=== PATIENT | female | born 2000 | race African-American/Black ===

== ENCOUNTER 2022-01-05 21:05 | Emergency (ER) | payer MEDICAID, SELFPAY ==
[2022-01-05 21:08] VITALS: BP 145/89; PULSE 89; RESP 18; TEMP 36.3; O2SAT 100
--- NOTE | 2022-01-05 22:16 | ED.GENADULT ---
HPI - General Adult General Chief complaint: Unspecified <JACLYN Stokes Last Filed: 01/05/22 23:44> Stated complaint: sore throat <JACLYN Stokes Last Filed: 01/05/22 23:44> Time Seen by Provider: 01/05/22 22:11 <JACLYN Stokes Last Filed: 01/05/22 23:44> History of Present Illness HPI narrative: Patient is a 21-year-old female who presents for evaluation of sore throat x2 days. Patient states the pain came on gradually. Reports pain with swallowing, but she is tolerating her secretions. She has not tried anything for the pain. Denies neck swelling, fevers, chills, difficulty moving her neck, sinus congestion, cough. She has beem vaccinated against COVID and flu. <JACLYN Stokes Last Filed: 01/05/22 23:44> Related Data Allergies/adverse reactions: Allergies Allergy/AdvReac Type Severity Reaction Status Date / Time No Known Allergies Allergy Verified 01/05/22 22:19 <JACLYN Stokes Last Filed: 01/05/22 23:44> Review of Systems Review of Systems: Gen: Denies fevers or chills Eyes: Denies eye pain or visual change ENT: Reports sore throat. Denies congestion Respiratory: Denies shortness of breath or cough CV: Denies chest pain or palpitations GI: Denies abdominal pain nausea, emesis or diarrhea denies burning, urgency, frequency or hematuria Musculoskeletal: Denies back pain or muscle pain Neuro: Denies numbness, tingling, weakness or focal weakness Skin: Denies rash Except as documented, all other systems reviewed and negative <JACLYN Stokes Last Filed: 01/05/22 23:44> All systems reviewed & are unremarkable except as noted in HPI and below <JACLYN Stokes Last Filed: 01/05/22 23:44> Exam Narrative: APPEARANCE: Well appearing, no pain in distress, well-nourished. Head normocephalic and atraumatic. EYES: PERRLA/EOMI, conjunctivae clear NOSE: No nasal drainage EARS: External ear normal in appearance THROAT: Tonsils are 2+ bilaterally. No EXCELLENCE CONSULTANT visualized. No uvular deviation. NECK: Supple. Full range of motion in neck without pain. No adenopathy, no masses. RESPIRATORY: Airway patent, respirations nonlabored. Clear to auscultation bilaterally, no rales, rhonchi, wheezing. CARDIOVASCULAR: Regular rate and rhythm without murmurs, rubs, or gallops. ABDOMINAL: Normoactive bowel sounds. Soft, nontender, nondistended. No rebound tenderness or guarding. MUSCULOSKELETAL: Extremities are warm and well-perfused. Moves all extremities well. No edema. NEURO: Normal speech. No focal neurologic deficits. SKIN:: Skin is warm and dry. No rashes. PSYCHIATRIC: Normal affect/mood.. <JACLYN Stokes Last Filed: 01/05/22 23:44> Course Vital Signs Vital signs: Vital Signs Temperature 97.3 F L 01/05/22 21:08 Pulse Rate 89 01/05/22 21:08 Respiratory Rate 18 01/05/22 21:08 Blood Pressure 145/89 H 01/05/22 21:08 Pulse Oximetry 100 01/05/22 21:08 Temperature 97.3 F L 01/05/22 21:08 Pulse Rate 89 01/05/22 21:08 Respiratory Rate 18 01/05/22 21:08 Blood Pressure 145/89 H 01/05/22 21:08 Pulse Oximetry 100 01/05/22 21:08 <JACLYN Stokes Last Filed: 01/05/22 23:44> Medical Decision Making MDM Narrative Medical decision making narrative: 21-year-old female here with sore throat for 2 days. Vital signs stable, tonsillar swelling noted on exam, strep test negative. Very low concern for EXCELLENCE CONSULTANT/RPA, as patient has full range of motion of her neck and is tolerating her secretions. Will give shot of steroids for swelling and pain, discussed return precautions with patient. <JACLYN Stokes Last Filed: 01/05/22 23:44> Vital Signs Vital Signs: Vital Signs Temperature 97.3 F L 01/05/22 21:08 Pulse Rate 89 01/05/22 21:08 Respiratory Rate 18 01/05/22 21:08 Blood Pressure 145/89 H 01/05/22 21:08 Pulse Oxim
== END 2022-01-05 22:54 | disposition home or self-care (01) ==
PROVIDERS: Emergency Provider Emergency Medicine
DX: J02.9 Acute pharyngitis, unspecified (principal)
CPT/HCPCS: 87081; 87880; 96372; 99283; J1100

== ENCOUNTER 2022-08-31 13:47 | Emergency (ER) | payer OTHER, SELFPAY ==
[2022-08-31 13:55] VITALS: BP 115/99; PULSE 106; RESP 18; TEMP 36.4; O2SAT 100
--- NOTE | 2022-08-31 14:08 | ED.FEMALEGU ---
HPI - Female Genitourinary General Chief complaint: Urogenital-Female Stated complaint: ovarian cyst Time Seen by Provider: 08/31/22 13:52 Source: patient and RN notes reviewed Mode of arrival: other Limitations: no limitations History of Present Illness HPI Narrative: 22 years old -[place] female presents with a cystlike feeling at the left side of her vagina for the last 3 to 4 weeks. No discharge. She denies any fever, chills, nausea, vomiting. Related Data Allergies Allergy/AdvReac Type Severity Reaction Status Date / Time No Known Allergies Allergy Verified 01/05/22 22:19 Review of Systems Review of Systems: All systems reviewed & are unremarkable except as noted in HPI and below Exam Narrative: General appearance: Well-developed, well-nourished Skin: Normal color Chest and respiratory: Airway patent, no respiratory distress, no accessory muscle use Heart: Regular rate/rhythm Abdomen: Soft, nontender, no organomegaly, quiet bowel sounds Vascular: Normal peripheral pulses, normal capillary refill. Musculoskeletal: Normal range of motion, nontender back Neurologic: Alert and oriented ?3, NET FRONT END DEVELOPER is normal as tested, no gross motor deficit Course Vital Signs Vital signs: Vital Signs Temperature 36.4 C 08/31/22 13:55 Pulse Rate 106 H 08/31/22 13:55 Respiratory Rate 18 08/31/22 13:55 Blood Pressure 115/99 H 08/31/22 13:55 Pulse Oximetry 100 08/31/22 13:55 Oxygen Delivery Room Air 08/31/22 13:55 Temperature 36.4 C 08/31/22 13:55 Pulse Rate 106 H 08/31/22 13:55 Respiratory Rate 18 08/31/22 13:55 Blood Pressure 115/99 H 08/31/22 13:55 Pulse Oximetry 100 08/31/22 13:55 Oxygen Delivery Room Air 08/31/22 13:55 Procedures Abscess I/D bartholin's gland: Date of Incision: 08/31/22 Time of Incision: 16:33 Side (if applicable): left Sedation/analgesia: none Local Anesthetic: none Technique: incised with #11 blade Amount of fluid expressed (mL): 30 Irrigation: No Packing used?: Word catheter I&D Results: Pus Complications: pain Abcess I&D Additional Comments: WOrd cath was inflated with 5 cc normal saline MDM - Female Genitourinary MDM Narrative Medical decision making narrative: Patient is 22 years old -[place] female presents with a cyst like feeling at the left vaginal area Physical examination showed signs consistent with Bartholin cyst at the inner side of the labia minora. Incision using #11 scalpel done, 30 mL purulent discharge, offensive odor, Word catheter placed, inflated with 5 mL normal saline, patient tolerated the procedure well. Discharged on doxycycline and to follow-up with COATER ASSOCIATE within 5 to 7 days. Patient tolerated the procedure well. Critical Care Time Critical Care Time Critical Care Time: No Discharge Plan Discharge Clinical Impression: Bartholin's gland abscess Patient Disposition: Home, Self-Care Condition: Improved Instructions: Antibiotic Form, Bartholin Cyst (ED) Additional Instructions: Return if symptoms are worsening , call DR BENSON for appointment, take Tylenol as as needed for aches and pain, continue home medications. Prescriptions: New doxycycline hyclate 100 mg tablet 100 mg PO DAILY Qty: 20 0RF Follow-up/Referrals: Kostas,Alanis Gonzalez MD [Primary Care Provider] - Duke Benson MD [Physician] - 09/05/22 Stand Alone Forms: Work/School Release IP
== END 2022-08-31 16:49 | disposition home or self-care (01) ==
PROVIDERS: Emergency Provider Emergency Medicine; PCP Obstetrics & Gynecology
DX: N75.0 Cyst of Bartholin's gland (principal)
CPT/HCPCS: 56420; 99283

== ENCOUNTER 2022-10-26 22:38 | Emergency (ER) | payer OTHER, SELFPAY ==
[2022-10-26 22:51] VITALS: BP 164/58; PULSE 101; RESP 18; TEMP 36.4; O2SAT 100
--- NOTE | 2022-10-27 00:24 | PC.NURSE ---
A wound assessment was documented on this pt. It was on the incorrect pt. Disregard wound assessment
--- NOTE | 2022-10-27 00:26 | PC.NURSE ---
Pt reports Bartholin cyst
[2022-10-27] MEDS: HYDROcodone/acetaminophen (*CRX) 7.5-325 MG TABLET 1 TAB PO (01:47)
--- NOTE | 2022-10-27 01:54 | ED.SKABFB ---
HPI - Skin/Abscess/Foreign Bdy General Chief complaint: Skin/Abscess/Foreign Body <JACYLN Stokes Last Filed: 10/27/22 04:31> Stated complaint: cyst needs drain <JACLYN Stokes Last Filed: 10/27/22 04:31> Time Seen by Provider: 10/27/22 00:16 <JACLYN Stokes Last Filed: 10/27/22 04:31> History of Present Illness HPI narrative: Patient is a 22-year-old female here for evaluation of left-sided labial swelling and pain over the past several days. Patient has a history of Bartholin gland abscess that she had drained at the end of August. States that she had a Word catheter placed but this fell out the next day. The pain and swelling reaccumulated over the past several days. She has not seen her APPRAISAL COORDINATOR for follow-up. Denies nausea, vomiting, abdominal pain. <JACLYN Stokes Last Filed: 10/27/22 04:31> Related Data Allergies/Adverse reactions: Allergies Allergy/AdvReac Type Severity Reaction Status Date / Time No Known Allergies Allergy Verified 01/05/22 22:19 <JACLYN Stokes Last Filed: 10/27/22 04:31> Review of Systems Review of Systems: Gen.: Denies fevers or chills Eyes: Denies eye pain or visual change ENT: Denies congestion Respiratory: Denies shortness of breath or cough CV: Denies chest pain or palpitations GI: Denies abdominal pain nausea, emesis or diarrhea denies burning, urgency, frequency or hematuria Musculoskeletal: Denies back pain or muscle pain Neuro: Denies numbness, tingling, weakness or focal weakness Skin: Reports swelling and pain to the left labia Except as documented, all other systems reviewed and negative <JACLYN Stokes Last Filed: 10/27/22 04:31> Exam Narrative: Gen: Uncomfortable in appearance. Eyes: EOMI, no icterus Pulm: Respirations even and unlabored, symmetric thorax expansion, no audible stridor or visible cyanosis CV: Regular rate per telemetry GI: No distension, no voluntary/involuntary guarding : Patient has a 2 x 3 cm area of fluctuance and induration to the 4 o'clock position in her labia minora with no active drainage. This area is tender to palpation. Neuro: AOx4, moves all extremities without apparent difficulty or weakness, follows commands Skin: No jaundice, no visible bruising, rashes, lesions or wounds on exposed skin Psych: Normal mood/affect, insight/judgement good, adequate fund of knowledge, recent/remote memory intact <Alanis Mccarty PA-C - Last Filed: 10/27/22 04:31> Course SUGAR CANE PLANTER MACHINE OPERATOR/PA Physician Supervision This is a was performed by both a physician and an APC. Deleon components of procedures were performed under my supervision I performed all aspects of the MDM as documented w/ the following additions: 22-year-old female presenting with infected Bartholin gland cyst. I&D performed with word catheter placed. Patient placed on antibiotics and given follow-up. All questions answered. Patient in agreement w/ disposition. <Yinka Ruby MD - Last Filed: 10/28/22 03:40> Vital Signs Vital signs: Vital Signs Temperature 97.5 F L 10/26/22 22:51 Pulse Rate 101 H 10/26/22 22:51 Respiratory Rate 18 10/26/22 22:51 Blood Pressure 164/58 H 10/26/22 22:51 Pulse Oximetry 100 10/26/22 22:51 Oxygen Delivery Room Air 10/26/22 22:51 Temperature 97.5 F L 10/26/22 22:51 Pulse Rate 95 10/27/22 03:00 Respiratory Rate 18 10/27/22 03:00 Blood Pressure 152/84 H 10/27/22 03:00 Pulse Oximetry 100 10/27/22 03:00 Oxygen Delivery Room Air 10/26/22 22:51 <Alanis Mccarty PA-C - Last Filed: 10/27/22 04:31> Vital Signs Temperature 97.5 F L 10/26/22 22:51 Pulse Rate 101 H 10/26/22 22:51 Respiratory Rate 18 10/26/22 22:51 Blood Pressure 164/58 H 10/26/22 22:51 Pulse Oximetry 100 10/26/22 22:51 Oxygen Delivery Room Air 10/26/22 22:51 Temperature 97.5 F L 10/26/22 22:51 Pulse Rate
[2022-10-27 02:16] VITALS: BP 158/76; PULSE 97; RESP 18; O2SAT 98
[2022-10-27 03:00] VITALS: BP 152/84; PULSE 95; RESP 18; O2SAT 100
== END 2022-10-27 03:04 | disposition home or self-care (01) ==
PROVIDERS: Emergency Provider Physician Assistant; PCP Obstetrics & Gynecology
DX: N75.1 Abscess of Bartholin's gland (principal)
CPT/HCPCS: 56420; 99283; A9270

== ENCOUNTER 2025-03-25 10:41 | Emergency (ER) | payer OTHER, SELFPAY ==
--- NOTE | ~2025-03-25 | XR_ITS ---
LUMBAR SPINE INDICATION: Low back pain TECHNIQUE: 3 views lumbar spine views lumbar spine COMPARISON: No prior studies for comparison. FINDINGS: No fracture, subluxation or dislocation. No evidence for spondylolysis or spondylolisthesi s. Vertebral bodies and disk spaces are preserved. IMPRESSION: 1: No acute abnormality of the lumbar spine identified. Reviewed, dictated and finalized at location A.
[2025-03-25 10:52] VITALS: BP 167/107; PULSE 79; RESP 16; TEMP 36.9; O2SAT 100
[2025-03-25 10:53] VITALS: BP 175/99
--- NOTE | 2025-03-25 12:02 | ED.GENADULT ---
HPI - General Adult General Chief complaint: Back Pain/Injury Stated complaint: back pain Source: patient Mode of arrival: ambulatory Limitations: no limitations History of Present Illness HPI narrative: Patient presents for evaluation of low back pain since yesterday. She indicates she was cleaning her room prior to the time of symptom onset, although she does not remember specific movement that induced her pain. Pain is constant, sharp, 7/10 in severity. Radiates into her left buttock and down the posterior aspect of the left thigh. She has tried taking Tylenol for symptoms. She denies any saddle anesthesia, bladder /bowel incontinence. Related Data Allergies Allergy/AdvReac Type Severity Reaction Status Date / Time No Known Allergies Allergy Verified 03/25/25 10:44 Review of Systems Review of Systems: CONSTITUTIONAL: Denies fever, chills, or sweats. EYES: Denies visual changes, redness, or discharge. ENT: Denies rhinorrhea, congestion, sore throat, or otalgia. CARDIOVASCULAR: Denies chest pain, palpitations, or edema. RESPIRATORY: Denies cough or dyspnea. GASTROINTESTINAL: Denies abdominal pain, nausea, vomiting, or diarrhea. GENITOURINARY: Denies dysuria or hematuria. SKIN: Denies rash or itching. MUSCULOSKELETAL: reports low back pain with radiation into the left buttock and on the posterior aspect the left thigh NEUROLOGIC: Denies headache, numbness, dizziness, or weakness. PSYCHIATRIC: Denies anxiety or depression. PMFSH Past Medical History Medical History PCOS (polycystic ovarian syndrome) Surgical History Surgical History History of removal of ovarian cyst Family History Family History (Updated 03/25/25 @ 12:07 by DOV Wills, ) Mother Family history non-contributory Social History Social History Smoking status: Never smoker Substance use: never Gender identity (if verbalized by the patient): Female Spiritual care concerns: No Exam Narrative: GENERAL: Well-appearing, well-nourished, and in no acute distress. HEAD: Normocephalic, atraumatic. EYES: PERRLA and EOMI. ENT: Nares clear, no rhinorrhea or epistaxis. Mucous membranes moist. Oropharynx without tonsillar hypertrophy exudate or other lesions. Bilateral TMs pearly andrew nonbulging NECK: Supple. No adenopathy or masses. No carotid bruits or JVD CHEST: Clear to auscultation. No respiratory distress. No wheezes rales or rhonchi HEART: Regular rate and rhythm. No murmur heard. Normal peripheral pulses. ABDOMEN: Soft, nontender, nondistended, normal active bowel sounds. EXTREMITIES: Normal range of motion. No edema. SKIN: Warm, dry, no rash. NEURO: No focal deficits. Alert and oriented x3. PSYCH: Normal mood and affect. Course Course Emergency Course: This is a 24 year old female who presented for evaluation of low back pain. x-ray negative. Exam is consistent with strain. Will DC with ibuprofen and Flexeril. Advise she follow up outpatient for further evaluation and treatment. She should have her blood pressure recheck by primary care provider. She should go to the emergency department for worsening symptoms. Patient in agreement with plan of care. Level of Care: Express Care Visit Vital Signs Vital signs: Vital Signs Temperature 36.9 C 03/25/25 10:52 Pulse Rate 79 03/25/25 10:52 Respiratory Rate 16 03/25/25 10:52 Blood Pressure 167/107 H 03/25/25 10:52 Pulse Oximetry 100 03/25/25 10:52 Oxygen Delivery Room Air 03/25/25 10:52 Temperature 36.9 C 03/25/25 10:52 Pulse Rate 79 03/25/25 10:52 Respiratory Rate 16 03/25/25 10:52 Blood Pressure 175/99 H 03/25/25 10:53 Pulse Oximetry 100 03/25/25 10:52 Oxygen Delivery Room Air 03/25/25 10:52 Medical Decision Making Vital Signs Vital Signs: Vital Signs Temperature 36.9 C 03/25/25 10:52 Pulse Rate 79 03/25/25 10:52 Respiratory Rate 16 03/25/25 10:52 Blood Pressure 167/107 H 03/25/25 10:52 Pulse Oximetry 100 03/25/25 10:52 Oxygen Delivery Room Air 03/25/25 10:52 Temperature 36.9 C 03/25/25 10:52 Pulse Rate 79 03/25/25 10:52 Respiratory Rate 16 03/25/25 10:52 Blood Pressure 175/99 H 03/25/25 10:53 Pulse Oximetry 100 03/25/25 10:52 Oxygen Delivery Room Air 03/25/25 10:52 Imaging Data Radiologist's impression: LUMBAR SPINE INDICATION: Low back pain TECHNIQUE: 3 views lumbar spine views lumbar spine COMPARISON: No prior studies for comparison. FINDINGS: No fracture, subluxation or dislocation. No evidence for spondylolysis or spondylolisthesis. Vertebral bodies and disk spaces are preserved. IMPRESSION: 1: No acute abnormality of the lumbar spine identified. Discharge Plan Discharge Clinical Impression: Low back strain Patient Disposition: Home Condition: Stable Instructions: Antibiotic Form, Low Back Strain (ED) Patient Language: [place] Prescriptions: New ibuprofen 600 mg tablet 600 mg PO TID PRN (Reason: pain) Qty: 15 0RF cyclobenzaprine 10 mg tablet 10 mg PO TID PRN (Reason: muscle spasm) Qty: 15 0RF Follow-up/Referrals: Kostas,Alanis Gonzalez MD [Primary Care Provider] - Stand Alone Forms: Work/School Release IP Time of Disposition: 11:51
== END 2025-03-25 11:56 | disposition home or self-care (01) ==
PROVIDERS: Emergency Provider Nurse Practitioner; PCP Obstetrics & Gynecology
DX: S39.012A Strain of muscle, fascia and tendon of lower back, initial encounter (principal); X58.XXXA Exposure to other specified factors, initial encounter; Y93.E9 Activity, other interior property and clothing maintenance; E28.2 Polycystic ovarian syndrome
CPT/HCPCS: 72100; 99213; G0463